=== PATIENT | male | born 1975 | race Caucasian/White ===

== ENCOUNTER 2017-04-17 19:48 | Emergency (ER) | payer OTHER ==
[2017-04-17 20:30] VITALS: BP 134/82
[2017-04-17 20:42] LABS: Hemoglobin 15.2 gm/dL (13.5-18.0); Mean Cell Volume 91.5 fl (78-100); Mean Corpuscular Hemoglobin 32.3 pg (27-31); Mean Corpuscular Hgb Conc 35.3 g/dl (32-36); Mean Platelet Volume 10.8 fl (6.0-9.5); Neutrophil # 5.7 K/mm3 (1.3-6.0); Platelet Count 182 K/mm3 (150-450); Red Cell Distribution Width 12.8 % (11.5-14.0); White Blood Count 9.3 K/mm3 (4.0-10.5)
[2017-04-17 20:55] LABS: Albumin * 3.7 gm/dl (3.4-5.0); Anion Gap 17.7 mmol/L (6.8-13.8); Bilirubin, Total 0.2 mg/dL (0.0-1.1); Ca. Corrected For Albumin 8.8 mg/dL (8.4-10.2); Calcium * 8.9 mg/dL (7.9-10.9); Carbon Dioxide 22.9 mmol/L (24-32.6); Potassium 3.6 mmol/L (3.4-4.6); Total Protein 8.2 gm/dL (6.2-8.2)
[2017-04-17] MEDS ORDERED: KETOROLAC TROMETHAMINE 60 MG/2 ML VIAL IM ONE ×2 (21:18→21:21)
--- NOTE | 2017-04-17 21:20 | ERNOTE ---
Upper Extremity HPI - General Extremities Pain Location: elbow: right - pain Time Seen by Provider: 04/17/17 21:04 Source: patient Exam Limitations: no limitations - Immun/Allergies/Home Medications Immunizations: IMMUNIZATION HX Immunizations Up to Date Yes History of Influenza Vaccine No Hx Pneumococcal Vaccination No Allergies/Adverse Reactions: Allergies Allergy/AdvReac Type Severity Reaction Status Date / Time No Known Allergies Allergy Verified 04/17/17 20:30 Home Medications: HOME MEDICATIONS Nabumetone 750 mg PO BID #30 tablet 04/17/17 [Last Taken Unknown] - History of Present Illness Narrative: Pt has had elbow pain x 3 weeks. No known injury Occurred: other Severity: moderate Method of Injury: Reports: unknown Modifying Factors - (Improves): Reports: immobilization Modifying Factors - (Worsens): Reports: movement Other Injuries: Reports: none Review of Systems - Review of Systems Constitutional: Absent: recent illness Cardiology: Absent: edema Skin: Absent: rash Neurological: Absent: numbness, tingling - Patient's Past Medical History Patient History - Medical: No pertinent hx Patient History - Cardiac/Respiratory: No pertinent hx Patient History - Cancer: No Hx of Cancer Patient History - Surgical Procedures: Orthopedic Patient History - Other: None - Family History Mother Family History - Medical: Diabetes Type 2 Father Family History - Medical: Diabetes Type 2 - Social History Living Situations: home Abuse History: No History of abuse Psych History: No pertinent hx Smoking Status: Current every day smoker Alcohol Use: occasionally Drug Use: none - Immunizations Immunizations Up to Date: Yes Hx Pneumococcal Vaccination: No History of Influenza Vaccine: No Physical Exam - Physical Exam General Appearance: Present: wd/wn, alert, no apparent distress Head Exam: Present: normal inspection, no evidence of injury Eye Exam: Normal inspection: bilateral Neck: Present: normal inspection, nontender, supple, full range of motion Respiratory: Present: no respiratory distress, no accessory muscle use Peripheral Pulses: N=norm/S=strong/W=weak/B=bound/A=absent: Radial (R): Normal Extremity Exam: Present: other - Tenderness at the right epicondyle and the proximal extensor group. Pain with extension of wrist Neurological Exam: Present: alert, oriented, normal mood/affect, no motor/ sensory deficits Skin Exam: Present: normal color, warm/dry Lymphatic Exam: Present: no adenopathy ED Progress - Vital Signs Vital Signs: Vital Signs 04/17/17 20:26 Temperature 36.5 C Pulse Rate 96 Respiratory 18 Rate Blood Pressure 134/82 O2 Sat by Pulse 97 Oximetry - Progress/Reassessment Chief Complaint: Upper Extremity Injury/Problem Departure Clinical Impression: Lateral epicondylitis of right elbow - Departure Disposition: Home self-care Condition: Good Instructions: Tennis Elbow With Rehab-SportsMed, Cryotherapy Prescriptions: Nabumetone 750 mg PO BID #30 tablet
== END 2017-04-17 21:39 | disposition home or self-care (01) ==
LOC: ER 19:48
DX: M77.11 Lateral epicondylitis, right elbow (principal); F17.200 Nicotine dependence, unspecified, uncomplicated

== ENCOUNTER 2017-04-25 19:40 | Emergency (ER) | payer OTHER ==
--- NOTE | 2017-04-25 21:09 | ERNOTE ---
Head Injury HPI - Narrative Date of Service: 04/25/17 - General Injury to: head Time Seen by Provider: 04/25/17 20:47 Source: patient, family, RN notes reviewed Exam Limitations: no limitations - Immun/Allergies/Home Medications Immunization: IMMUNIZATION HX Immunizations Up to Date No: unknown History of Influenza Vaccine No Hx Pneumococcal Vaccination No Allergies/Adverse Reactions: Allergies Allergy/AdvReac Type Severity Reaction Status Date / Time No Known Allergies Allergy Verified 04/25/17 19:58 - History of Present Illness Narrative: 42 y/o male brought to the ED by his family after being struck in the left side of the head with a softball while sliding into [address] [place]. He did not lose consciousness, but was reported to be unsteady when he got up. He has begun to feel tired since the injury. He has not had any recent head injuries. Occurred: just prior to arrival Location Occurred: park Severity: mild Head Injury Location: parietal Method of Injury: Reports: direct blow Loss of Consciousness: Reports: no loss of consciousness, dazed, remembers event , remembers coming to hospital Associated Symptoms: Denies: neck pain, weakness, syncope, nausea, vomiting, other injuries Review of Systems - Review of Systems Constitutional: Present: fatigue, malaise EYE: Absent: eye pain, vision changes ENT: Absent: ear discharge, nasal drainage Respiratory: Present: no symptoms reported Cardiology: Present: no symptoms reported Gastrointestinal/Abdominal: Absent: nausea, vomiting Genitourinary: Present: no symptoms reported Musculoskeletal: Absent: muscle pain, neck pain, joint pain Skin: Absent: rash, lesions, lumps Neurological: Present: headache, dizziness/light-headedness Endocrine: Present: no symptoms reported Hematologic/Lymphatic: Present: no symptoms reported Psych: Present: no symptoms reported - Patient's Past Medical History Patient History - Medical: No pertinent hx Patient History - Cardiac/Respiratory: No pertinent hx Patient History - Cancer: No Hx of Cancer Patient History - Surgical Procedures: Orthopedic Patient History - Other: None - Family History Mother Family History - Medical: Diabetes Type 2 Father Family History - Medical: Diabetes Type 2 - Social History Living Situations: home Abuse History: No History of abuse Psych History: No pertinent hx Smoking Status: Current every day smoker Cigarettes Packs Per Day: 1 Have you smoked in the past 12 months: Yes Do you dip or chew tobacco: No Alcohol Use: occasionally Drug Use: none - Immunizations Immunizations Up to Date: No - unknown Hx Pneumococcal Vaccination: No History of Influenza Vaccine: No Physical Exam - Physical Exam General Appearance: Present: wd/wn, alert, no apparent distress Head Exam: Present: normal inspection. Absent: Barragan's Sign, ecchymosis, raccoon eyes, swelling, tenderness Eye Exam: Normal inspection: bilateral, PERRL: bilateral, EOMI: bilateral Ears, Nose, Throat: Present: normal ENT inspection, normal pharynx Neck: Present: normal inspection, nontender, supple, full range of motion Respiratory: Present: no respiratory distress, normal breath sounds, no accessory muscle use, lungs clear Cardiovascular/Chest: Present: regular rate, rhythm, no murmur Extremity Exam: Present: normal inspection, normal range of motion, no edema Neurological Exam: Present: alert, oriented, normal mood/affect, no motor/ sensory deficits Skin Exam: Present: normal color, warm/dry ED Progress - Vital Signs Patient's Vital Signs:: I have reviewed the patient's vital signs. Vital Signs: Vital Signs 04/25/17 04/25/17 19:55 20:27 Temperature 37.6 C H Pulse Rate 100 99 Respiratory 16 23 H Rate Blood Pressure 160/105 148/98 O2 Sat by Pulse 96 96 Oximetry - Progress/Reassessment Chief Complaint: Head Injury Progress:: Unchanged Departure Clinical Impression: Concussion without loss of consciousness Qualifiers: Encounter type: initial encounter Qualified Code(s): S06.0X0A - Concussion without loss of consciousness, initial encounter - Departure Disposition: Home Follow Up Needed Condition: Stable Instructions: Head Injury, Adult, [id number], Form - Excuse from Work, School , or Physical Activity Additional Instructions: Return to ER for worsening symptoms as discussed - vomiting, severe headache, or other concerns Rest Tylenol and/or ibuprofen for headache
[2017-04-25 21:18] VITALS: BP 139/102
== END 2017-04-25 21:14 | disposition home or self-care (01) ==
LOC: ER 19:40
DX: S06.0X0A Concussion without loss of consciousness, initial encounter (principal); F17.200 Nicotine dependence, unspecified, uncomplicated; X58.XXXA Exposure to other specified factors, initial encounter; Y93.64 Activity, baseball; Y92.830 Public park as the place of occurrence of the external cause; Y99.8 Other external cause status